=== PATIENT | male | born 1960 | race Caucasian/White ===

== ENCOUNTER 2017-03-28 13:54 | Inpatient (IN) | payer OTHER, SELFPAY ==
[2017-03-28] VITALS (9 sets, daily range): BP systolic 104–134; BP diastolic 58–80
[~2017-03-28] VITALS: Ht 170.2 cm; Wt 87.1 kg
[2017-03-28] MEDS ORDERED: LISINOPRIL10 MG PO (14:27)
[2017-03-28] MEDS ORDERED: BENTYL 10 MG CA10 M1 PO (14:27)
[2017-03-28 14:57] LABS: ABSOLUTE BASOPHILS 0.1 thou/uL (0.0-0.2); ABSOLUTE EOSINOPHILS 0.2 thou/uL (0.0-0.7); ABSOLUTE LYMPHOCYTES 2.3 thou/uL (0.8-5.3); ABSOLUTE MONOCYTES 0.8 thou/uL (0.0-1.2); ABSOLUTE NEUTROPHILS 7.8 thou/uL (1.6-8.1); BASOPHILS 0.5 %; EOSINOPHILS 1.4 %; HEMATOCRIT 43.4 % (42.0-52.0); HEMOGLOBIN 14.8 gm/dL (14.0-18.0); LYMPHOCYTES 20.4 %; MCHC 34.2 g/dL (28.0-37.0); MCV 84.7 fL (80.0-100.0); MONOCYTES 7.1 %; MPV 8.4 fl. (7.2-11.1); NUCLEATED RBCS 0 /100WBC; PLATELET COUNT* 290 thou/uL (150-400); POLYS 70.6 %; RBC 5.12 mil/uL (4.50-6.00); RDW-CV 13.4 % (10.5-14.5); WBC 11.1 thou/uL (4.0-11.0)
[2017-03-28 15:26] LABS: CALCIUM 9.1 mg/dL (8.5-10.1); POTASSIUM 3.9 mmol/L (3.5-5.1)
[2017-03-28 15:33] LABS: ALBUMIN 4.4 g/dL (3.4-5.0); TOTAL BILIRUBIN 0.7 mg/dL (<0.1-1.0); TOTAL PROTEIN 8.7 g/dL (6.4-8.2)
[2017-03-28 16:05] LABS: URINE BILIRUBIN NEGATIVE (Negative); URINE BLOOD TRACE (Negative); URINE CLARITY CLEAR; URINE COLOR YELLOW; URINE GLUCOSE-RANDOM NEGATIVE (Negative); URINE KETONES NEGATIVE (Negative); URINE LEUKOCYTES-REFLEX NEGATIVE (Negative); URINE NITRITE-REFLEX NEGATIVE (Negative); URINE PROTEIN 2+ (Negative); URINE SPECIFIC GRAVITY 1.025 (1.005-1.030); URINE UROBILINOGEN 0.2 E.U./dl (0.2-1.0)
[2017-03-28 16:25] LABS: HYALINE CASTS 0-3 Few /LPF (None Seen); MUCUS None Seen strn/LPF (None Seen); SQUAMOUS 4-10 Moderate /LPF (0-3)
[2017-03-28 16:26] LABS: BACTERIA-REFLEX 1-9 Few /HPF (None Seen); CRYSTALS None Seen /LPF (None Seen); URINE RBC 0-2 Rare /HPF (0-2); URINE WBC-REFLEX 0-5 Rare /HPF (0-5)
[2017-03-28 16:28] LABS: APTT 41.2 Seconds (25.0-31.3); INR 1.9; PROTIME 18.3 Seconds (9.20-11.50)
[2017-03-28 16:50] LABS: TROPONIN-I LEVEL <0.06 ng/mL (<0.06)
--- NOTE | 2017-03-28 18:05 | NUR ---
1700 PT ADMITTED TO ICU 2 PER CART FROM ER WITH C/O NAUSEA. SEE ADMISSION ASSESSMENT AND HISTORY. NSR.
--- NOTE | 2017-03-28 18:09 | NUR ---
SPOKE WITH DR BECKER AND ORDERS NOTED.
[2017-03-29] VITALS (10 sets, daily range): BP systolic 91–141; BP diastolic 50–78
--- NOTE | 2017-03-29 00:04 | NUR ---
PT RESTING QUIETLY WITH EYES CLOSED, EASILY AROUSABLE TO VERBAL STIMULI, SA02 DECREASED 88%, DENIES SOA, RESP EVEN AND NONLABORED, GOOD PLETH NOTED, PT DENIES PAIN, DISCOMFORT OR NAUSEA AT THIS TIME, OXYGEN 2L PER NC INITIATED, SAO2 INCREASED TO 97%.
[2017-03-29 04:29] LABS: HEMATOCRIT 35.7 % (42.0-52.0); MCH 29.5 pg (26.0-34.0); MCHC 34.5 g/dL (28.0-37.0); MCV 85.6 fL (80.0-100.0); MPV 8.2 fl. (7.2-11.1); RBC 4.16 mil/uL (4.50-6.00); RDW-CV 12.9 % (10.5-14.5); WBC 7.3 thou/uL (4.0-11.0)
[2017-03-29 04:45] LABS: HEMOGLOBIN 12.3 gm/dL (14.0-18.0)
[2017-03-29 05:08] LABS: ALBUMIN 3.1 g/dL (3.4-5.0); CALCIUM 7.5 mg/dL (8.5-10.1); MAGNESIUM 2.1 mg/dL (1.8-2.4); POTASSIUM 3.7 mmol/L (3.5-5.1); TOTAL BILIRUBIN 0.5 mg/dL (<0.1-1.0); TOTAL PROTEIN 5.7 g/dL (6.4-8.2)
[2017-03-29 05:11] LABS: CREATININE 10.1 mg/dL (0.6-1.3)
--- NOTE | 2017-03-29 06:30 | NUR ---
SLOW PROGRESSION TOWARDS GOALS, PHENAGRAN IV GIVEN X1 PRN EFFECTIVE FOR NAUSEA, MORPHINE 2MG IVP GIVEN FOR BILAT FLANK PAIN EFFECTIVE FOR PAIN MANAGEMENT, PT REPORTS ANY TYPE MINIMAL PO INTAKE CAUSED NAUSEA, THAT RESOLVED WITH NPO, DR VELAZQUEZ HERE TO SEE PT THIS AM, UPDATED ON MEDICAL STATUS, PT AWAKE, ALERT, AND CONVERSATIVE THIS AM, AFEBRILE, NS 100CC/HR VIA INFUSION PUMP. CALL LIGHT IN REACH, BED REMAINS IN LOW AND LOCKED POSITON.
--- NOTE | 2017-03-29 08:36 | NUR ---
PATIENT IS NOW MED TELE STATUS.
[2017-03-29 10:46] LABS: URINE BILIRUBIN NEGATIVE (Negative); URINE BLOOD TRACE (Negative); URINE CLARITY CLEAR; URINE COLOR YELLOW; URINE GLUCOSE-RANDOM NEGATIVE (Negative); URINE KETONES NEGATIVE (Negative); URINE LEUKOCYTES NEGATIVE (Negative); URINE NITRITE NEGATIVE (Negative); URINE PROTEIN TRACE (Negative); URINE UROBILINOGEN 0.2 E.U./dl (0.2-1.0)
[2017-03-29 15:57] LABS: CALCIUM 7.5 mg/dL (8.5-10.1); CREATININE 10.4 mg/dL (0.6-1.3); POTASSIUM 3.4 mmol/L (3.5-5.1)
--- NOTE | 2017-03-29 17:48 | NUR ---
PATIENT VERY COOPERATIVE, RENAL LEVELS STILL BEGIN TO RISE, STILL PRODUCES URINE. NAUSEA HAS SUBSIDED SOME TODAY. M/S TELE, TOLERATING GETTING UP AND WALKING AROUND. CRITICAL I&OS ON PATIENT. NO OTHER CONCERNS AT THIS TIME. BED IN LOWEST POSITION, CALL LIGHT IN REACH, WILL CONTINUE TO MONITOR.
--- NOTE | 2017-03-29 22:00 | NUR ---
RENAL FUNCTION STUDIES REMAIN ELEVATED. PT IS PRODUCING LIGHT YELLOW URING. PT DENIES DIFFICULTY VOIDING. PT HAS DENIED CHEST PAIN AND SOA. NO OTHER PAIN, PER PT. O2 SAT 97% ON RA. CALL LIGHT WITHIN REACH.
[2017-03-29 23:06] LABS: COMPLEMENT-C4 25 mg/dL (14-44)
[2017-03-30 04:00] VITALS: BP 115/70
[2017-03-30 05:06] LABS: ABSOLUTE EOSINOPHILS 0.2 thou/uL (0.0-0.7); ABSOLUTE LYMPHOCYTES 1.6 thou/uL (0.8-5.3); ABSOLUTE MONOCYTES 0.8 thou/uL (0.0-1.2); ABSOLUTE NEUTROPHILS 5.9 thou/uL (1.6-8.1); BASOPHILS 0.2 %; EOSINOPHILS 1.8 %; HEMOGLOBIN 11.8 gm/dL (14.0-18.0); LYMPHOCYTES 19.2 %; MCH 29.6 pg (26.0-34.0); MCHC 34.7 g/dL (28.0-37.0); MCV 85.5 fL (80.0-100.0); MONOCYTES 9.3 %; MPV 8.5 fl. (7.2-11.1); NUCLEATED RBCS 0 /100WBC; PLATELET COUNT* 200 thou/uL (150-400); POLYS 69.5 %; RBC 3.98 mil/uL (4.50-6.00); RDW-CV 12.8 % (10.5-14.5); WBC 8.4 thou/uL (4.0-11.0)
[2017-03-30 05:36] LABS: HEPATITIS B SURFACE AG Negative (Negative); HIV-1/HIV-2 ANTIBODY Non Reactive (Non Reactive)
[2017-03-30 05:39] LABS: ALBUMIN 2.7 g/dL (3.4-5.0); CALCIUM 7.3 mg/dL (8.5-10.1); CREATININE 11.1 mg/dL (0.6-1.3); MAGNESIUM 1.8 mg/dL (1.8-2.4); POTASSIUM 3.6 mmol/L (3.5-5.1); TOTAL BILIRUBIN 0.3 mg/dL (<0.1-1.0); TOTAL PROTEIN 5.3 g/dL (6.4-8.2)
--- NOTE | 2017-03-30 06:13 | NUR ---
PT TRANSFERED TO ROOM 311 AT 2300 VIA WHEELCHAIR. PT ORIENTED TO ROOM, CALL LIGHT SHOWN, PT STATES UNDERSTANDING. IV PATENT, FLUIDS INFUSING. OUTPUT MONITORED. PT SHOWERED. TELE MONITOR IN PLACE READING SR TO SB. NO REPORTS OF PAIN. NO CONCERNS AT THIS TIME, WILL CONTINUE TO MONITOR.
[2017-03-30 08:25] VITALS: BP 124/73
--- NOTE | 2017-03-30 09:11 | CON ---
[address] [address] CONSULTATION Name: CHIO MANSFIELD Room: [address] IN M.R.#: [id number] Admission: 03/28/17 Attend Phys: Katy Canales MD Discharge: Date of : 64 Report #: [id number] THIS REPORT FOR: //name// CC: Tiffanie Canales HISTORY OF PRESENT ILLNESS: The patient is a 56-year-old gentleman of origin who speaks very good Nepalese and is able to provide all the history himself. He was seen in Intensive Care Unit. He was admitted last night with what appears to be a diagnosis of acute kidney injury. Exact reason for him being in the intensive care unit is not really clear. His blood pressures are marginally on the lower side though. The patient reports duration of illness of around 10 days. He went to [facility] around 10 days ago with symptoms suggestive of gastroenteritis with severe diarrhea and nausea and vomiting. He was given Flagyl. He received a CT scan of his abdomen with IV contrast at that time, which suggested sigmoid colitis. He was given Flagyl, Bentyl and sent home. His diarrhea has since improved. He has not had any diarrhea for past 1 week now, but he continues to be extremely nauseous and has not been able to take any food orally. When he came to the hospital here, his creatinine was found to be above 9. Overnight, he has received close to 2-1/2 liters of normal saline. His blood pressure was stable earlier but the past many hours has been in the 90s systolic. The nurse tells me he made around 250 mL of urine overnight. He does not appear to be toxic clinically. He is talking to me comfortably. He is not short of breath. His mucous membranes are very dry. His abdomen is vaguely tender. No new rashes have been reported. No significant joint pains have been reported. At home he denies taking any NSAIDs. He has been taking lisinopril all through the past many days in addition to completing the courses of the medications he was given. He did not complete his Flagyl because of worsening nausea. He denies any hematuria, skin rashes. He has no family history of ESRD. PAST MEDICAL HISTORY: Significant for hypertension and cholecystectomy, recent diagnosis of colitis. HOME MEDICATIONS: Include lisinopril, dicyclomine and a recent course of Flagyl. ALLERGIES: He is allergic to SULFA MEDICATIONS. PERSONAL AND SOCIAL AND FAMILY HISTORY: No alcohol, no smoking. REVIEW OF SYSTEMS: No fevers, rigors, chills, no chest pain. He is not significantly short of breath. No urinary complaints. [place] [address] CONSULTATION Name: CHIO MANSFIELD Room: [address] IN .R.#: [id number] Admission: 03/28/17 Attend Phys: Katy Canales MD Discharge: Date of : 64 Report #: [id number] PHYSICAL EXAMINATION: VITAL SIGNS: His blood pressure was in 90s. GENERAL: He is awake, he is alert. HEENT: His mucous membranes are very dry. He is smacking his lips as we talk for the conversation. LUNGS: Diminished, but clear. SKIN: Very dry. ABDOMEN: Soft, vaguely tender, but no peritoneal signs. EXTREMITIES: Lower extremity: No rashes noted. SKIN: Markedly dry with decreased turgor. LABORATORY DATA: His labs show white count of 7.3, hemoglobin of 12.3. On admission, his sodium was found to be 139, potassium 3.7, his creatinine was 9 and this morning it is 10.1. His BUN was 65, this morning it is 70, calcium is 7.5, AST 29, ALT 84 down from 141. CK levels were normal 177, albumin is 3.1. Lipase was normal at 217. CT of the abdomen was done on admission, which was done without contrast and it shows normal size kidneys apparently with no hydronephrosis, no acute pathology is noted in the abdomen. There is diverticulosis of the colon and hepatic steatosis. Chest x-ray showed mild left subsegmental atelectasis. ASSESSMENT: 1. Acute kidney injury, nonoliguric. 2. Hypertension at baseline, taking PATRICK inhibitors at home, presently hypotensive. 3. Clinically appears volume depleted. 4. Mild anemia, but no thrombocytopenia. 5. Recent acute gastrointestinal illness and intravenous contrast administration. PLAN: 1. Marked azotemia based on his labs. He does have nausea and is unable to keep food down, but does not appear to be toxic. Otherwise, he is awake and alert and has no asterixis. 2. He does have mild metabolic acidosis. I recommend giving him total of 250 mL an hour of IV fluids, 150 an hour of which can be bicarbonate drip. The rest can be normal saline. After the bicarbonate drip is done, continue on normal saline. We will repeat labs at 4 p.m. 3. His urinalysis does show some proteinuria. We will quantify the protein as well as check serologies including ZINA, ANCA, complements, hepatitis titers and HIV and SPEP and UPEP also and repeat urinalysis once the Gonzalez catheter has been placed. We did follow up with labs this afternoon. I did explain to the patient that if his renal function does not get any better in the next 24-48 hours, he may need to start dialysis. 4. Please hold all nephrotoxic medications including PATRICK inhibitors, ARBs, [place] [address] CONSULTATION Name: CHIO MANSFIELD Room: [address] IN .R.#: [id number] Admission: 03/28/17 Attend Phys: Katy Canales MD Discharge: Date of : 64 Report #: [id number] NSAIDs and no IV contrast. Thank you for allowing us to be a part of the patient. <ELECTRONICALLY SIGNED> By: Britt Wasserman MD 03/30/17 0911 [id number] Wasserman MD /nt
[2017-03-30 12:13] VITALS: BP 116/67
[2017-03-30 15:42] VITALS: BP 141/73
--- NOTE | 2017-03-30 15:54 | EKG ---
[place] [address] ELECTROCARDIOGRAM REPORT Name: CHIO MANSFIELD Room: [address] ADM IN M.R.#: [id number] Admission: 03/28/17 Attend Phys: Katy Canales MD Discharge: Date of : 64 Report #: [id number] THIS REPORT FOR: //name// [facility] ED Test Date: 2017-03-28 Test Time: 15:54:16 Pat Name: CHIOLOPEZ HAUSERZ Department: Room: [facility] Gender: M Industrial Technology Teacher: : 1960 Requested By: Ry Lopez Order Number: [id number] MD: Aneesh Espinoza Measurements Intervals [place] Rate: 67 P: 9 HI: 152 QRS: -14 QRSD: 93 T: 12 QT: 418 QTc: 442 Interpretive Statements Sinus rhythm Abnormal R-wave progression, early transition Borderline ST elevation, lateral leads No previous ECG available for comparison Electronically Signed On 03-30-2017 15:54:26 CLAIM CLERK by Aneesh Espinoza [email or web address] <ELECTRONICALLY SIGNED> By: Loyd Espinoza MD, [facility] 03/30/17 1554 1554 1554 Loyd Espinoza MD, [facility] /EPI
--- NOTE | 2017-03-30 19:02 | NUR ---
PATIENT RESTING IN BED. PATIENT IS UP AD MAYRA IN ROOM. PATIENT DENIES ANY PAIN. PATIENT HAS POOR APPETITE. PATIENT IS EDEMATOUS, IV FLUIDS INFUSING AT 125ML/HR, DR CONN NOTIFIED. PATIENT HAS HAD URINE OUTPUT OF 900ML OF LIGHT YELLOW URINE. PATIENT DENIES ANY NEEDS AT THIS TIME. CALL LIGHT WITHI REACH. WILL CONTINUE TO MONITOR.
[2017-03-30 22:00] VITALS: BP 140/82
[2017-03-31 00:05] VITALS: BP 153/86
[2017-03-31 04:02] VITALS: BP 119/71
[2017-03-31 04:20] LABS: ABSOLUTE EOSINOPHILS 0.2 thou/uL (0.0-0.7); ABSOLUTE LYMPHOCYTES 1.8 thou/uL (0.8-5.3); ABSOLUTE MONOCYTES 0.7 thou/uL (0.0-1.2); ABSOLUTE NEUTROPHILS 5.9 thou/uL (1.6-8.1); BASOPHILS 0.2 %; EOSINOPHILS 2.8 %; HEMATOCRIT 33.1 % (42.0-52.0); HEMOGLOBIN 11.5 gm/dL (14.0-18.0); LYMPHOCYTES 20.6 %; MCH 29.3 pg (26.0-34.0); MCHC 34.8 g/dL (28.0-37.0); MCV 84.1 fL (80.0-100.0); MONOCYTES 8.6 %; MPV 8.5 fl. (7.2-11.1); NUCLEATED RBCS 0 /100WBC; PLATELET COUNT* 201 thou/uL (150-400); POLYS 67.8 %; RBC 3.93 mil/uL (4.50-6.00); RDW-CV 12.8 % (10.5-14.5); WBC 8.7 thou/uL (4.0-11.0)
[2017-03-31 04:31] LABS: CALCIUM 7.2 mg/dL (8.5-10.1); CREATININE 11.8 mg/dL (0.6-1.3); PHOSPHORUS* 7.5 mg/dL (2.5-4.9); POTASSIUM 3.6 mmol/L (3.5-5.1)
--- NOTE | 2017-03-31 05:02 | NUR ---
ALERT AND ORIENTED. UP AD MAYRA IN ROOM TO BATHROOM WITHOUT DIFFICULTY. C/O SOME LOWER ABD PAIN/PRESSURE BUT REFUSED PAIN MEDICATION. PATIENT STATED THAT HIS LOWER ABDOMEN DOES SEEM TO BE DISTENDED. PATIENT WAS ABLE TO SLEEP AFTER NASUEA MEDICATION GIVEN. VOIDING ADEQUATE AMOUNT VERY PALE YELLOW URINE. FLUIDS INFUSING WITHOUT DIFFIUCLTY. LUNG SOUNDS HAVE CRACKLES IN BILATERAL BASES. CALL LIGHT WITHIN REACH
[2017-03-31 08:05] VITALS: BP 134/78
[2017-03-31 11:46] VITALS: BP 142/79
[2017-03-31 13:31] LABS: APTT 30.8 Seconds (25.0-31.3); INR 1.1; PROTIME 10.6 Seconds (9.20-11.50)
[2017-03-31 16:10] LABS: ANA INTERPRETATION Negative (())
--- NOTE | 2017-03-31 16:40 | NUR ---
SW met with pt to complete initial assessment, introduced self and SW role. Pt alert and oriented. Pt lives at home with his and was independent and active. Pt does not foresee any dc needs. No history DME or HH or SNF. SW to continue to follow to assist with any dc needs.
--- NOTE | 2017-03-31 16:52 | 2DMMODE ---
[place] [address] 2 D/M-MODE ECHOCARDIOGRAM Name: CHIO MANSFIELD Room: [address] IN [facility]#: [id number] Admission: 03/28/17 Attend Phys: Katy Canales, Discharge: Date of : 64 Date of Service: 03/31/17 165 Report #: [id number] THIS REPORT FOR: //name// APPROVED REPORT Study performed: 03/31/2017 15:33:54 EXAM: Comprehensive 2D, Doppler, and color-flow Echocardiogram Patient Location: In-Patient Room #: [facility] Status: routine BSA: 1.99 HR: 60 bpm BP: 119/71 mmHg Rhythm: NSR Other Information Study Quality: Good Indications Hypertension/HDD 2D Dimensions LVEF(%): 56.26 (>50%) IVSd: 11.44 (7-11mm) LVOT Diam: 20.68 (18-24mm) LVDd: 44.71 mm PWd: 10.22 (7-11mm) Ascending Ao: 30.95 (22-36mm) LVDs: 31.63 (25-40mm) Aortic Root: 33.98 mm Moeller's LVEF: 56.26 % Volumes Left Atrial Volume (Systole) LA ESV Index: 31.20 mL/m2 Aortic Valve AoV Peak Hal.: 1.52 m/s AO Peak Gr.: 9.19 mmHg LVOT Max P.54 mmHg AO Mean Gr.: 4.57 mmHg LVOT Mean P.32 mmHg LVOT Max V: 1.07 m/s AO V2 VTI: 33.01 cm LVOT Mean V: 0.71 m/s AALIYAH (VTI): 2.43 cm2 LVOT V1 VTI: 23.84 cm Mitral Valve E/A Ratio: 1.16 [place] [address] 2 D/M-MODE ECHOCARDIOGRAM Name: CHIO MANSFIELD Room: [address] IN .R.#: [id number] Admission: 03/28/17 Attend Phys: Katy Canales, Discharge: Date of : 64 Date of Service: 03/31/17 1652 Report #: [id number] MV Decel. Time: 194.76 ms MV E Max Hal.: 0.97 m/s MV PHT: 56.48 ms MVA (PHT): 3.90 cm2 TDI E/Lateral E': 8.08 E/Medial E': 8.08 Medial E' Hal.: 0.12 m/s Lateral E' Hal.: 0.12 m/s Pulmonary Valve PV Peak Hal.: 1.06 m/s PV Peak Gr.: 4.52 mmHg Tricuspid Valve TR Peak Gr.: 28.40 mmHg RVSP: 33.00 mmHg Left Ventricle The left ventricle is normal size. There is normal LV segmental wall motion. There is normal left ventricular wall thickness. Left ventricular systolic function is normal. The left ventricular ejection fraction is within the normal range. LVEF is 55-60%. The left ventricular diastolic function is normal. Right Ventricle The right ventricle is normal size. The right ventricular systolic function is normal. Atria The left atrium size is normal. The right atrium size is normal. Aortic Valve The aortic valve is normal in structure. No aortic regurgitation is present. There is no aortic valvular stenosis. Mitral Valve The mitral valve is normal in structure. Trace mitral regurgitation. No evidence of mitral valve stenosis. Tricuspid Valve The tricuspid valve is normal in structure. Trace tricuspid regurgitation. The RVSP is 30-35 mmHg. Pulmonic Valve The pulmonary valve is normal in structure. There is no pulmonic valvular [place] [address] 2 D/M-MODE ECHOCARDIOGRAM Name: CHIO MANSFIELD Room: [address] IN .R.#: [id number] Admission: 03/28/17 Attend Phys: Katy Canales, Discharge: Date of : 64 Date of Service: 03/31/17 1652 Report #: [id number] Great Vessels The aortic root is normal in size. IVC is normal in size and collapses with >50% inspiration Pericardium There is no pericardial effusion. <Conclusion> The left ventricle is normal size. There is normal left ventricular wall thickness. Left ventricular systolic function is normal. The left ventricular ejection fraction is within the normal range. LVEF is 55-60%. The left ventricular diastolic function is normal. The right ventricle is normal size. The left atrium size is normal. The aortic valve is normal in structure. The mitral valve is normal in structure. Trace mitral regurgitation. The tricuspid valve is normal in structure. Trace tricuspid regurgitation. The RVSP is 30-35 mmHg. IVC is normal in size and collapses with >50% inspiration There is no pericardial effusion. There is normal LV segmental wall motion. <ELECTRONICALLY SIGNED> By: Benjamin Barone MD, FACC 03/31/171651 51 51 Benjamin Barone MD, FACC /INF
[2017-03-31 16:56] VITALS: BP 158/84
--- NOTE | 2017-03-31 17:26 | NUR ---
PATIENT A/O X 4 THIS SHIFT. PATIENT HAS DENIED PAIN. HAS HAD INCREASING NAUSEA THIS THIS SHIFT, MEDICATED WITH ZOFRAN X 2 AND SCOPALAMINE PATCH REPLACED. IV FLUIDS DECREASED TO 80/HR. PATIENT UP AD MAYRA IN ROOM. CONTINUES ON CREATIVE WRITER, TRACING NSR/SB. SEEN BY NEPHROLOGY THIS SHIFT AND ORDERS NOTED FOR KIDNEY BIOPSY ON FRIDAY. VOIDING PER URINAL. LABS TO BE REPEATED IN AM. HOURLY ROUNDING COMPLETED. CALL LIGHT WITHIN REACH. WILL CONTINUE WITH PLAN OF CARE.
[2017-04-01] VITALS: BP 119/61
[2017-04-01 03:48] VITALS: BP 126/61
[2017-04-01 04:30] LABS: HEMATOCRIT 34.2 % (42.0-52.0); HEMOGLOBIN 11.9 gm/dL (14.0-18.0); MCH 29.1 pg (26.0-34.0); MCHC 34.8 g/dL (28.0-37.0); MCV 83.6 fL (80.0-100.0); RBC 4.1 mil/uL (4.50-6.00); RDW-CV 12.5 % (10.5-14.5); WBC 8.6 thou/uL (4.0-11.0)
[2017-04-01 04:45] LABS: ALBUMIN 2.6 g/dL (3.4-5.0); CALCIUM 7.4 mg/dL (8.5-10.1); CREATININE 12.2 mg/dL (0.6-1.3); POTASSIUM 3.6 mmol/L (3.5-5.1); TOTAL BILIRUBIN 0.4 mg/dL (<0.1-1.0); TOTAL PROTEIN 5.2 g/dL (6.4-8.2)
--- NOTE | 2017-04-01 05:45 | NUR ---
PT SLEPT MOST OF SHIFT. ASSESSMENT DOCUMENTED. MEDS GIVEN PER E-MAY. IV PATENT, FLUIDS INFUSING. PT REPORTED PAIN, BUT EXPRESSED CONCERNS ABOUT TAKING MORPHINE. DR NOTIFED, ORDER CHANGED. PT REPORTED NAUSEA AND HAD ONE EPISODE OF EMESIS, ZOFRAN GIVEN PER E-MAY. NO CONCERNS AT THIS TIME, WILL CONTINUE TO MONITOR.
[2017-04-01 09:15] VITALS: BP 137/72
[2017-04-01 11:11] LABS: GLOBULIN TOTAL 2.8 g/dL (2.2-3.9); M-SPIKE Not Observed g/dL (Not Observed)
[2017-04-01 13:08] LABS: URINE PROTEIN (MG/DL) 26.2 mg/dL (Not Estab.)
--- NOTE | 2017-04-01 14:00 | NUR ---
PATIENT TAKEN TO DIALYSIS AT THIS TIME. SPOKE WITH DR JOSEPH REGARDING KIDNEY BIOPSY AND ORDERS RECEIVED TO CANCEL FOR TODAY AND HAVE BIOPSY DONE ON FRIDAY. REPORT GIVEN TO DIALYSIS NURSE. PATIENT TAKEN TO DIALYSIS VIA BED. WILL CONTINUE WITH PLAN OF CARE.
--- NOTE | 2017-04-01 16:55 | NUR ---
PATIENT HAS BEEN A/O X 4 THIS SHIFT. MEDICATED FOR NAUSEA X 1. HAD TEMPORARY DIALYSIS CATHETER PLACED AT BEDSIDE BY DR VARGAS. PATIENT'S IV RESTARTED AND IV FLUIDS CONTINUE TO INFUSE. VOIDING PER URINAL. PATIENT UP AD MAYRA IN ROOM. TAKEN FOR DIALYSIS THIS SHIFT. HOURLY ROUNDING COMPLETED. CALL LIGHT WITHIN REACH. WILL CONTINUE WITH PLAN OF CARE.
[2017-04-01 17:00] VITALS: BP 154/92
--- NOTE | 2017-04-01 17:00 | NUR ---
PATIENT RETURNED FROM DIALYSIS. DILAYSIS CATH INTACT, DRESSING CHANGED PER DIALYSIS PERSONNEL. TOLERATED WITHOUT ANY DIFFICULTY. DENIES ANY NAUSEA. WILL CONTINUE WITH PLAN OF CARE.
[2017-04-02] VITALS (13 sets, daily range): BP systolic 130–156; BP diastolic 66–82
[2017-04-02 04:51] LABS: ABSOLUTE EOSINOPHILS 0.2 thou/uL (0.0-0.7); ABSOLUTE LYMPHOCYTES 1.4 thou/uL (0.8-5.3); ABSOLUTE MONOCYTES 0.8 thou/uL (0.0-1.2); ABSOLUTE NEUTROPHILS 5.1 thou/uL (1.6-8.1); BASOPHILS 0.1 %; EOSINOPHILS 2.5 %; HEMATOCRIT 33.4 % (42.0-52.0); LYMPHOCYTES 18.7 %; MCH 29.2 pg (26.0-34.0); MCHC 35.9 g/dL (28.0-37.0); MCV 81.4 fL (80.0-100.0); MONOCYTES 10.3 %; MPV 9.1 fl. (7.2-11.1); NUCLEATED RBCS 0 /100WBC; PLATELET COUNT* 224 thou/uL (150-400); POLYS 68.4 %; RBC 4.11 mil/uL (4.50-6.00); RDW-CV 12.6 % (10.5-14.5); WBC 7.4 thou/uL (4.0-11.0)
[2017-04-02 04:52] LABS: CALCIUM 7.8 mg/dL (8.5-10.1); POTASSIUM 3.2 mmol/L (3.5-5.1)
[2017-04-02 05:03] LABS: CREATININE 10.1 mg/dL (0.6-1.3)
--- NOTE | 2017-04-02 05:09 | NUR ---
PT SLEPT MOST OF SHIFT. ASSESSMENT DOCUENTED. MEDS GIVEN PER E-MAR. IV PATENT, FLUIDS INFUSING. PT REPORTED NECK PAIN AND A HEADACHE, PAIN MEDS GIVEN PER E-MAR. NO REPORTS OF NAUSEA. PT REMAINED NPO AFTER 0000. NO CONCERNS AT THIS TIME, WILL CONTINUE TO MONITOR.
--- NOTE | 2017-04-02 16:57 | NUR ---
PATIENT A&OX4, ROOM AIR, IV LEFT FOREARM, FLUIDS INFUSSING. UP AD MAYRA, STEADY GAIT. C/O HEADACHE AND LOW BACK PAIN RELIEF WITH MEDICATION. C/O N/V, RELIEF WITH MEDICATIONS. RECIEVING DIALYSIS THIS EVENING. NO OTHER CONCERNS AT THIS TIME. APPROPRIATE AND COOPORATIVE WITH CARE.
[2017-04-03] VITALS: BP 126/61
--- NOTE | 2017-04-03 02:50 | NUR ---
ASSUMED CARE OF PT AT 1900. PT IS ALERT AND ORIENTED. VSS. PERRLA. PT IS MAKING URINE. PT IS IN SINUS RYTHM ON THE TELEMETRY. PT IS RESTING COMFORTABLY IN BED. RESPIRATIONS ARE EVEN AND NONLABORED. WILL CONTINUE TO MONITOR PT.
[2017-04-03 04:00] VITALS: BP 147/85
[2017-04-03 04:18] LABS: ABSOLUTE EOSINOPHILS 0.3 thou/uL (0.0-0.7); ABSOLUTE LYMPHOCYTES 1.8 thou/uL (0.8-5.3); ABSOLUTE MONOCYTES 0.7 thou/uL (0.0-1.2); ABSOLUTE NEUTROPHILS 4.7 thou/uL (1.6-8.1); BASOPHILS 0.3 %; EOSINOPHILS 3.4 %; HEMATOCRIT 35.2 % (42.0-52.0); HEMOGLOBIN 12.2 gm/dL (14.0-18.0); LYMPHOCYTES 24.4 %; MCH 28.9 pg (26.0-34.0); MCHC 34.7 g/dL (28.0-37.0); MCV 83.5 fL (80.0-100.0); MONOCYTES 9.3 %; MPV 8.7 fl. (7.2-11.1); NUCLEATED RBCS 0 /100WBC; PLATELET COUNT* 224 thou/uL (150-400); POLYS 62.6 %; RBC 4.22 mil/uL (4.50-6.00); RDW-CV 12.7 % (10.5-14.5); WBC 7.6 thou/uL (4.0-11.0)
[2017-04-03 04:42] LABS: CALCIUM 7.9 mg/dL (8.5-10.1); POTASSIUM 3.4 mmol/L (3.5-5.1)
[2017-04-03 04:47] LABS: CREATININE 7.3 mg/dL (0.6-1.3)
[2017-04-03 08:00] VITALS: BP 124/90
[2017-04-03 12:20] VITALS: BP 161/92
--- NOTE | 2017-04-03 18:47 | NUR ---
DAY 7 OF STAY. A/O X 4, REPORTS INTERMITTENT NAUSEA, MANAGED WELL WITH IV MEDICATION. REPORTS MILD DISCOMFORT TO RIGHT FLANK, RELIEVED WITH ICE PACK. UP AD MAYRA INDEPENDENTLY, DIALYSIS TODAY, 500 ML TAKEN OFF. VOIDED 2200 ML THIS SHIFT. E-LYTES LOW, REPLACEMENT PROTOCOL ORDERED BY PATRICIA. PER CINDI, PATIENT TO HOLD ON DIALYSIS TOMORROW. CALL LIGHT IN REACH, CONT POC.
[2017-04-03 20:00] VITALS: BP 143/87
[2017-04-04 00:06] VITALS: BP 146/80
[2017-04-04 04:13] VITALS: BP 137/75
[2017-04-04 04:21] LABS: ABSOLUTE EOSINOPHILS 0.4 thou/uL (0.0-0.7); ABSOLUTE LYMPHOCYTES 1.9 thou/uL (0.8-5.3); ABSOLUTE MONOCYTES 0.6 thou/uL (0.0-1.2); ABSOLUTE NEUTROPHILS 5.3 thou/uL (1.6-8.1); BASOPHILS 0.3 %; EOSINOPHILS 5.1 %; HEMATOCRIT 36.1 % (42.0-52.0); HEMOGLOBIN 12.3 gm/dL (14.0-18.0); LYMPHOCYTES 22.6 %; MCH 28.9 pg (26.0-34.0); MCHC 34.1 g/dL (28.0-37.0); MCV 84.7 fL (80.0-100.0); MONOCYTES 7.7 %; MPV 8.6 fl. (7.2-11.1); NUCLEATED RBCS 0 /100WBC; PLATELET COUNT* 234 thou/uL (150-400); POLYS 64.3 %; RBC 4.27 mil/uL (4.50-6.00); RDW-CV 12.7 % (10.5-14.5); WBC 8.2 thou/uL (4.0-11.0)
[2017-04-04 04:32] LABS: APTT 30.3 Seconds (25.0-31.3); INR 1.1; PROTIME 10.4 Seconds (9.20-11.50)
[2017-04-04 04:44] LABS: CALCIUM 8.3 mg/dL (8.5-10.1); POTASSIUM 3.8 mmol/L (3.5-5.1)
[2017-04-04 08:00] VITALS: BP 132/84
--- NOTE | 2017-04-04 14:02 | NUR ---
Nutrition: Pt assessed for LOS. RN unavailable to speak with. Renal diet. On HD. Admitted with N/V. Wt: 200 down to 192# - likely fluid-related. Labs: BUN 26, creat 5, GFR 12, alb 2.6, prealb 17.4. Renal FXN appears to be getting better. Awaiting further POC. Currently, pt appears at Mild nutrition risk. HD on hold today. Will follow up for po intake and wt by 04/08/17.
[2017-04-04 15:20] VITALS: BP 124/76
--- NOTE | 2017-04-04 21:06 | NUR ---
I ASSUMED CARE OF THE PATIENT AT 0700. HE IS ALERT AND ORIENTED X4 AND PLEASANT. FAMILY IS AT THE BEDSIDE MOST OF THE DAY. HOURLY ROUNDING WAS COMPLETED AND PATIENT NEEDS WERE MET. PAIN WAS DENIED. HE IS UP AD MAYRA TO THE BATHROOM AND HAS 2200 - 2500 OUTPUT DURING A SHIFT. LABS IN THE MORNING WILL SHOW IF ADDITIONAL DIALYSIS IS NEEDED. PATIENT IS PROGRESSING ON HIS OWN. HE IS CURIOUS TO KNOW WHAT THE BIOPSY RESULTS ARE. BED WAS IN THE LOW LOCKED POSITION AND CALL LIGHT WAS IN REACH. WILL CONTINUE TO MONITOR.
[2017-04-05 00:48] VITALS: BP 132/74
[2017-04-05 04:47] LABS: ABSOLUTE EOSINOPHILS 0.6 thou/uL (0.0-0.7); ABSOLUTE LYMPHOCYTES 2.1 thou/uL (0.8-5.3); ABSOLUTE MONOCYTES 0.6 thou/uL (0.0-1.2); ABSOLUTE NEUTROPHILS 4.9 thou/uL (1.6-8.1); BASOPHILS 0.2 %; HEMATOCRIT 34.3 % (42.0-52.0); HEMOGLOBIN 11.9 gm/dL (14.0-18.0); LYMPHOCYTES 25.8 %; MCH 28.9 pg (26.0-34.0); MCHC 34.5 g/dL (28.0-37.0); MCV 83.6 fL (80.0-100.0); MONOCYTES 7.7 %; MPV 8.6 fl. (7.2-11.1); NUCLEATED RBCS 0 /100WBC; PLATELET COUNT* 235 thou/uL (150-400); POLYS 59.3 %; RBC 4.11 mil/uL (4.50-6.00); RDW-CV 12.6 % (10.5-14.5); WBC 8.3 thou/uL (4.0-11.0)
[2017-04-05 04:49] VITALS: BP 116/65
[2017-04-05 04:58] LABS: CALCIUM 8.6 mg/dL (8.5-10.1); CREATININE 5.2 mg/dL (0.6-1.3); MAGNESIUM 1.6 mg/dL (1.8-2.4); POTASSIUM 3.4 mmol/L (3.5-5.1)
--- NOTE | 2017-04-05 06:04 | NUR ---
ASSUMED PATIENT CARE AT 1900. PATIENT ALERT AND ORIENTED TIMES 4. URINATING LARGE AMOUNTS OF CLEAR YELLOW URINE. NO COMPLAINTS OF PAIN OR DISCOMFORT. EXPRESSES OPTIMISM ON LAB VALUES IN THE AM, HOPING TO GO HOME 04/05/17. HOURLY ROUNDING COMPLETED DOCUMENTED. PATIENT ABLE TO AMBULATE INDEPENDENTLY TO THE RESTROOM AND PERFORM SELF-CARE INDEPENDENTLY. WILL CONTINUE TO MONITOT. VITAL SIGNS STABLE
[2017-04-05 08:20] VITALS: BP 137/80
[2017-04-05 16:49] VITALS: BP 143/84
--- NOTE | 2017-04-05 18:08 | NUR ---
PATIENT HAS BEEN A/O X 4 THIS SHIFT. HAS DENIED PAIN THIS SHIFT. MEDICATED FOR NAUSEA X 2, NO EMESIS THIS SHIFT. IV FLUIDS SALINE LOCKED. PATIENT VOIDING PER URINAL IN LARGE AMOUNTS. GIVEN MIRALAX FOR CONSTIPATION. LABS ORDERED FOR AM. PATIENT WITH TEMPORARY DIALYSIS IN PLACE, NO DIALYSIS TODAY. CONTINUES ON SHELL MOLD BONDING MACHINE OPERATOR TRACING NSR. PATIENT HOPEFUL TO BE DISCHARGED SOON. HOURLY ROUNDING COMPLETED. CALL LIGHT WITHIN REACH. WILL CONTINUE WITH PLAN OF CARE.
[2017-04-05 20:00] VITALS: BP 154/85
[2017-04-05 23:21] VITALS: BP 137/80
[2017-04-06 04:09] VITALS: BP 133/83
[2017-04-06 04:59] LABS: ALBUMIN 3.3 g/dL (3.4-5.0); CREATININE 4.7 mg/dL (0.6-1.3); POTASSIUM 3.7 mmol/L (3.5-5.1); TOTAL BILIRUBIN 0.5 mg/dL (<0.1-1.0); TOTAL PROTEIN 7.1 g/dL (6.4-8.2)
--- NOTE | 2017-04-06 05:29 | NUR ---
ASSUMED PATIETN CARE AT 1900. PATIENT ALERT AND ORIENTED TIMES FOUR. MAGNESIUM AND POTASSIUM REPLACED PER PROTOCOL. URINATING CLEAR, YELLOW URINE THROUGH SHIFT. IV PATENT, SLAINE LOCKED. CREAT DOWN THIS AM TO 4.7. TEMPORARY DIALYSIS CATH IN PLACE. NO COMPLAINTS OF PAIN OR DISCOMFORT. NO NEED FOR ANTI NAUSEA MEDICATION THROUGH SHIFT. PATIENT UP INDEPENDENTLY IN ROOM. HOURLY ROUNDING COMPLETED DOCUMENTED.
[2017-04-06 09:40] VITALS: BP 128/79
[2017-04-06 15:06] LABS: IgA 266 mg/dL (90-386); IgG 806 mg/dL (700-1600)
[2017-04-06 16:12] VITALS: BP 118/76
--- NOTE | 2017-04-06 19:43 | NUR ---
PATIENT HAS BEEN A/O X 4 THIS SHIFT. HAS DENIED PAIN. GIVEN ZOFRAN X 1 WITH RELIEF. UP AD MAYRA IN ROOM. PATIENT'S IV SALINE LOCKED. TEMPORARY DIALYSIS CATH IN PLACE. DIALYSIS ON HOLD PER DR JOSEPH, CREATININE TRENDING DOWN. TO HAVE REPEAT LABS IN AM. TOLERATING DIET. HOPEFUL TO BE DISCHARGED SOON. HOURLY ROUNDING COMPLETED. WILL CONTINUE WITH PLAN OF CARE.
[2017-04-06 20:15] VITALS: BP 129/91
[2017-04-06 23:40] VITALS: BP 124/72
[2017-04-07 02:05] LABS: IgM 81 mg/dL (20-172)
[2017-04-07 04:00] VITALS: BP 116/77
[2017-04-07 04:44] LABS: ALBUMIN 3.3 g/dL (3.4-5.0); CALCIUM 8.9 mg/dL (8.5-10.1); CREATININE 4.3 mg/dL (0.6-1.3); POTASSIUM 3.7 mmol/L (3.5-5.1); TOTAL BILIRUBIN 0.3 mg/dL (<0.1-1.0); TOTAL PROTEIN 6.4 g/dL (6.4-8.2)
--- NOTE | 2017-04-07 06:35 | NUR ---
PT SLEPT MOST OF SHIFT. ASSESSMENT DOCUMENTED. MEDS GIVEN PER E-MAY. PT REPORTED A LITTLE BIT OF PAIN IN HIS LEFT FLANK AND SAID HE WOULD NOTIFY NURSING IF IT BECAME WORSE. NO NAUSEA REPORTED THIS SHIFT. IV PATENT. NO CONCERNS AT THIS TIME, WILL CONTINUE TO MONITOR.
--- NOTE | 2017-04-07 14:49 | NUR ---
Pt to dc home today to home with . No need for arrangement of OP dialysis at this time. No other needs expressed.
[2017-04-07 16:00] VITALS: BP 124/87
--- NOTE | 2017-04-07 17:42 | NUR ---
PATIENT IS ALERT AND ORIENTED TODAY VERY PLEASANT, UP AD MAYRA IN ROOM. NO COMPLAINTS OF ANY KIND TODAY. VITAL SIGNS STABLE ON ROOM AIR. CALL LIGHT IS IN REACH, CALLS FOR HELP WHEN NEEDED. WILL CONTINUE TO MONITOR.
[2017-04-07 20:00] VITALS: BP 143/85
[2017-04-07 20:27] VITALS: BP 124/87
[2017-04-07] MEDS ORDERED: ALLOPURINOL 10100 M1 PO (20:39)
[2017-04-07] MEDS ORDERED: PHOSLO667 MG PO (20:43)
[2017-04-07] MEDS ORDERED: NORVASC5 MG PO (20:44)
[2017-04-07] MEDS ORDERED: BENTYL 10 MG CA10 M1 PO (20:47)
--- NOTE | 2017-04-07 21:15 | NUR ---
LEFT VIA WHEELCHAIR WITH & DGTR WITH BELONGINGS TO DISCHARGE HOME.
--- NOTE | 2017-04-08 10:06 | S ---
[place] [address] SURGICAL PATH RPT PROCEDURE Name: JACEK CHÁVEZ Room: [address] IN M.R.#: [id number] Admission: 03/28/17 Date of : 64 Discharge: 04/07/17 Report #: [id number] Path Case #: [id number] PATHOLOGY REPORT COLLECTION DATE: 04/02/2017 RECEIVED DATE: 04/02/2017 SUBMITTING PHYS: Dr. Daryn Moise OTHER PHYS: Dr. Roger Canales SPECIMEN(S) RECEIVED: A.Renal biopsy-Rt * * * * * * * * * * * * FINAL DIAGNOSIS: Please see next page for scanned image of report submitted by [facility] vocational rehab consultant pathologist, Dieudonne Martino M.D. (XIMENA:[place]; d/t: 04/07/2017) PATHOLOGIST: Lukas Odell M.D. REPORT ELECTRONICALLY SIGNED BY: Lukas Odell M.D. DATE/TIME: 04/07/2017 15:51 * * * * * * * * * * * * GROSS PATHOLOGY: The specimen is received in formalin, labeled "Jacek Chávez, right renal biopsy". Received are four needle cores of pale vigil soft tissue ranging in length from 0.5 to 1.1 cm, with each measuring 0.1 cm in diameter. The specimen is forwarded in its entirety to an outside laboratory for further processing. Also received is a container of Priyank's fixative, labeled "Jacek Chávez, right renal biopsy". Received are two needle cores of pale vigil soft tissue measuring 0.6 and 0.7 cm in length, with each measuring 0.1 cm in diameter. The specimen is forwarded its entirety to an outside laboratory for direct immunofluorescence studies. ([facility]; 04/02/2017) CLINICAL HISTORY: Acute renal failure INITIAL CPT CODE(S): A; 17036 Professional and Technical services performed by [facility], [address], [place] [address]. [place] [address] SURGICAL PATH RPT PROCEDURE Name: JACEK CHÁVEZ Room: [address] IN M.R.#: [id number] Admission: 03/28/17 Date of : 64 Discharge: 04/07/17 Report #: [id number] Path Case #: [id number] [facility] [address] [place] [address] PHONE: [phone] DIRECTOR: Lei Jones M.D. * * * END OF REPORT * * *
--- NOTE | 2017-04-09 14:38 | CON ---
[address] [address] CONSULTATION Name: CHIO MANSFIELD Room: [address] M.R.#: [id number] Admission: 03/28/17 Attend Phys: Katy Canales MD Discharge: 04/07/17 Date of : 64 Report #: [id number] THIS REPORT FOR: //name// CC: Tiffanie Canales DATE OF SERVICE: 04/01/2017 REASON FOR CONSULTATION: Need for a temporary dialysis catheter placement. HISTORY OF PRESENT ILLNESS: The patient is a 56-year-old man who was admitted about 4 days ago with acute kidney injury. He was initially admitted for nausea, vomiting, itching about 2 weeks prior to admission. He had been treated at outside hospital for colitis. Upon admission, he was noted to be in dehydration with acute renal failure. He has been followed by Nephrology who had been attempting to manage his nonoliguric acute kidney injury medically, but however, proceeded to decline. He is in need of dialysis at this point and is in need of an access. PAST MEDICAL HISTORY: Significant for hypertension, diverticulosis. PAST SURGICAL HISTORY: None. FAMILY HISTORY: Reviewed and noncontributory. SOCIAL HISTORY: He is a former smoker, having quit less than a year ago. Social alcohol use. MEDICATIONS: Include lisinopril and dicyclomine. ALLERGIES: INCLUDE SULFA AND FLAGYL. REVIEW OF SYSTEMS: A 12-point review of system performed. Pertinent positives as per HPI, other systems negative. PHYSICAL EXAMINATION: VITAL SIGNS: Stable, afebrile. GENERAL: Alert and oriented x 3, in no acute distress. HEENT: Normocephalic, atraumatic. Pupils equally round, reactive to light and accommodation. Extraocular muscles intact. NECK: Supple. No JVD, lymphadenopathy, carotid bruits. HEART: Seems regular rate and rhythm. LUNGS: Clear to auscultation bilaterally. ABDOMEN: Soft, nontender, nondistended. EXTREMITIES: [place], warm, well perfused with palpable peripheral pulses. NEUROLOGIC: Cranial nerves 2-12 grossly intact bilaterally. [place] [address] CONSULTATION Name: CHIO MANSFIELD Room: [address] IN [facility]#: [id number] Admission: 03/28/17 Attend Phys: Katy Canales MD Discharge: 04/07/17 Date of : 64 Report #: [id number] sensory deficits appreciated. SKIN: Warm with good turgor. ASSESSMENT AND PLAN: Again, a 56-year-old man with acute kidney injury. Plan is to perform bedside placement of a temporary dialysis catheter. We will be available in followup if he is to require any further long-term dialysis needs and a more durable access. <ELECTRONICALLY SIGNED> By: Shiraz Camarena DO 04/09/17 [id number] Jenkins DO /osmar
== END 2017-04-07 21:15 | disposition home or self-care (01) | DRG 683 ==
LOC: M.ERS 13:54 → M.3W 15:57 → M.TBA-ER 15:57 → M.ICU 17:00 → M.3W 03-29 23:30
PROVIDERS: Family Medicine; Internal Medicine; Internal Medicine Hematology & Oncology; Internal Medicine Nephrology; Nurse Practitioner Family; ADMIT Internal Medicine
DX: N17.0 Acute kidney failure with tubular necrosis (principal); E44.1 Mild protein-calorie malnutrition; J98.11 Atelectasis; E86.0 Dehydration; I10 Essential (primary) hypertension; D64.9 Anemia, unspecified; K57.90 Diverticulosis of intestine, part unspecified, without perforation or abscess without bleeding; E83.51 Hypocalcemia; E87.6 Hypokalemia; Z90.49 Acquired absence of other specified parts of digestive tract; Z88.2 Allergy status to sulfonamides; Z88.8 Allergy status to other drugs, medicaments and biological substances; Z87.891 Personal history of nicotine dependence; Z68.30 Body mass index [BMI] 30.0-30.9, adult

== ENCOUNTER → 2017-04-16 | Outpatient (CLI) | payer OTHER, SELFPAY ==
[~2017-04-16] MED LIST: ALLOPURINOL 10100 M1 PO; BENTYL 10 MG CA10 M1 PO; LISINOPRIL10 MG PO; NORVASC5 MG PO; PHOSLO667 MG PO
== END ==
LOC: M.CT 08:12
DX: K57.30 Diverticulosis of large intestine without perforation or abscess without bleeding (principal); Z90.49 Acquired absence of other specified parts of digestive tract

== ENCOUNTER → 2017-06-06 | Outpatient (CLI) | payer OTHER ==
[2017-06-06 08:30] LABS: POTASSIUM 3.5 mmol/L (3.5-5.1)
== END ==
LOC: M.LAB 01:39
PROVIDERS: Anesthesiology
DX: R73.9 Hyperglycemia, unspecified (principal); Z79.899 Other long term (current) drug therapy